=== PATIENT | male | born 1955 | race African-American/Black ===

== ENCOUNTER 2025-04-21 13:45 | Inpatient (IN) | payer MEDICARE, MEDICAID ==
[~2025-04-21] VITALS: Ht 177.8 cm; Wt 86.2 kg
[~2025-04-21 13:45] MED LIST: AMI2 PO; AMLO5TAB88 PO; ASPI-1160 PO; CLOP-31 PO; DAPA10TA MT; FINA-37 MT; FURO-151 MT; LEVO-65 MT; LOSA25TA26 MT; METO25TA6 PO; SPIR25TA6 MT; TAMS-54 PO
[2025-04-21] MEDS ORDERED: SODIUM CHLORIDE 0.9% (SEPSIS BOLUS) IV ONE (15:15)
[2025-04-21] MEDS: AZITHROMYCIN 500MG/250ML 250 ML IV SCH (15:46)
[2025-04-21 16:09] LABS: BASOPHILS % 0.3 % (0.0-2.0); EOSINOPHILS % 0.8 % (0.0-5.0); HEMATOCRIT. 43.9 % (42.0-52.0); HEMOGLOBIN. 14.2 g/dL (14.0-18.0); LYMPHOCYTES % 15.8 % (20.0-50.0); MEAN PLATELET VOLUME 8.0 fl (7.4-10.4); MONOCYTES % 12.0 % (2.0-8.0); NEUTROPHILS % 71.1 % (40.0-76.0); PLATELET 319 x1000/uL (130-400); RED BLOOD CELL COUNT 5.13 mill/uL (4.7-6.1); RED CELL DISTRIBUTION WIDTH 14.6 % (11.6-14.6)
[2025-04-21 16:27] LABS: CREATININE 1.4 mg/dL (0.6-1.3); TROPONIN I HIGH SENSITIVITY 10 ng/L (3.0-53); UREA NITROGEN BLOOD 10 mg/dL (9-23)
[2025-04-21] MEDS: CEFTRIAXONE 1GM/50ML 50 ML IV SCH (16:38)
[2025-04-21] MEDS ORDERED: DOCUSATE SODIUM 100MG CAPSULE PO PRN (17:00)
[2025-04-21] MEDS ORDERED: ACETAMINOPHEN 325MG TABLET PO PRN (17:00)
[2025-04-21] MEDS ORDERED: GUAIFENESIN 200MG/10ML SUGAR FREE UDC PO PRN (17:00)
[2025-04-21] MEDS ORDERED: ONDANSETRON HCL 4MG/2ML INJ IV PRN (17:00)
[2025-04-21] MEDS ORDERED: MAGNESIUM/ALUMINUM HYDROXIDE/SIMETHICONE 30ML UDC PO PRN (17:00)
[2025-04-21] MEDS ORDERED: IPRATROPIUM/ALBUTEROL 0.5-3(2.5)MG/3ML NEB HHN PRN (17:00)
[2025-04-21] MEDS: AMLODIPINE 5MG TABLET PO SCH (19:58)
[2025-04-21 20:00] VITALS: BP 169/115; PULSE 101; RESP 22; TEMP 38; O2SAT 97
[2025-04-21] MEDS: ATORVASTATIN CALCIUM 40MG TABLET PO SCH (20:08)
[2025-04-21] MEDS: METOPROLOL TARTRATE 25MG TABLET PO SCH (20:09)
[2025-04-21] MEDS ORDERED: HYDRALAZINE 20MG/ML VIAL IV PRN (20:15)
[2025-04-21] MEDS: ENOXAPARIN 40MG/0.4ML SYR SUBCUT SCH (20:16)
[2025-04-21] MEDS ORDERED: AMIODARONE 200MG TABLET PO SCH (21:00)
[2025-04-21 21:50] VITALS: BP 129/72; PULSE 91; RESP 25; TEMP 38.086
[2025-04-21] MEDS: ACETAMINOPHEN 325MG TABLET PO PRN (22:07)
[2025-04-22] VITALS: BP 110/78; PULSE 76; RESP 21; TEMP 38.1; O2SAT 95
[2025-04-22 04:00] VITALS: BP 120/82; PULSE 76; RESP 13; TEMP 36.7; O2SAT 98
[2025-04-22 04:21] LABS: CLARITY URINE CLEAR (CLEAR); COLOR URINE YELLOW (YELLOW); GLUCOSE URINE 3+ (NEGATIVE); KETONES URINE TRACE (NEGATIVE); LEUKOCYTE ESTERASE URINE TRACE (NEGATIVE); NITRITE URINE NEGATIVE (NEGATIVE); OCCULT BLOOD URINE TRACE (NEGATIVE); PH URINE 5.5 (4.5-8.0); PROTEIN URINE 1+ (NEGATIVE); SPECIFIC GRAVITY URINE 1.023 (1.005-1.030); UROBILINOGEN URINE 1.0 E.U./dL (0.2-1.0)
[2025-04-22 04:25] LABS: *AMPHETAMINES SCREEN URINE NEGATIVE (NEGATIVE); *BENZODIAZEPINES SCREEN URINE NEGATIVE (NEGATIVE)
[2025-04-22 04:26] LABS: *BARBITURATES SCREEN URINE NEGATIVE (NEGATIVE); *COCAINE SCREEN URINE NEGATIVE (NEGATIVE); CANNABINOID URINE SCREEN NEGATIVE (NEGATIVE); ECSTASY MDMA SCREEN URINE NEGATIVE (NEGATIVE); METHADONE URINE SCREEN NEGATIVE (NEGATIVE); OPIATES URINE SCREEN NEGATIVE (NEGATIVE); PHENCYCLIDINE URINE SCREEN NEGATIVE (NEGATIVE)
[2025-04-22 04:33] LABS: BACTERIA URINE TRACE; SQUAMOUS EPITHELIAL CELL URINE RARE /lpf (RARE/1+)
[2025-04-22 06:22] LABS: INFLUENZA TYPE A Presumptive Negative (Pres. Neg.); INFLUENZA TYPE B Presumptive Negative (Pres. Neg.)
[2025-04-22 08:00] VITALS: BP 129/79; PULSE 80; RESP 18; TEMP 37; O2SAT 97
[2025-04-22 09:55] LABS: BASOPHILS % 0.5 % (0.0-2.0); EOSINOPHILS % 2.6 % (0.0-5.0); HEMATOCRIT. 45.4 % (42.0-52.0); HEMOGLOBIN. 14.7 g/dL (14.0-18.0); LYMPHOCYTES % 40.2 % (20.0-50.0); MEAN PLATELET VOLUME 8.2 fl (7.4-10.4); MONOCYTES % 14.3 % (2.0-8.0); NEUTROPHILS % 42.4 % (40.0-76.0); PLATELET 301 x1000/uL (130-400); RED BLOOD CELL COUNT 5.32 mill/uL (4.7-6.1); RED CELL DISTRIBUTION WIDTH 15.0 % (11.6-14.6)
[2025-04-22 10:08] LABS: CREATININE 1.3 mg/dL (0.6-1.3); TRIGLYCERIDE 69 mg/dL (0-150)
[2025-04-22] MEDS: PANTOPRAZOLE 40MG DR TABLET PO SCH (10:08)
[2025-04-22] MEDS: ASPIRIN 81MG EC TABLET PO SCH (10:08)
[2025-04-22] MEDS: AMIODARONE 200MG TABLET PO SCH (10:08)
[2025-04-22 10:09] LABS: LDL CHOLESTEROL 104 mg/dL (5-100); UREA NITROGEN BLOOD 11 mg/dL (9-23)
[2025-04-22 10:10] LABS: PHOSPHORUS 2.8 mg/dL (2.5-4.9)
[2025-04-22 12:00] VITALS: BP 121/69; PULSE 69; RESP 20; TEMP 37.2; O2SAT 98
[2025-04-22 16:00] VITALS: BP 153/100; PULSE 76; RESP 18; TEMP 36.9; O2SAT 96
[2025-04-22] MEDS: TAMSULOSIN HCL 0.4MG SR CAPSULE PO SCH (17:23)
[2025-04-22] MEDS: FINASTERIDE 5MG TABLET PO SCH (17:23)
[2025-04-22 20:00] VITALS: BP 142/103; PULSE 92; RESP 18; TEMP 36.9; O2SAT 100
[2025-04-23] VITALS: BP 111/66; PULSE 72; RESP 20; TEMP 36.9; O2SAT 97
[2025-04-23 04:00] VITALS: BP 137/90; PULSE 83; RESP 20; TEMP 36.6; O2SAT 97
[2025-04-23 07:25] LABS: PLATELET 278 x1000/uL (130-400); RED BLOOD CELL COUNT 4.94 mill/uL (4.7-6.1); RED CELL DISTRIBUTION WIDTH 15.1 % (11.6-14.6)
[2025-04-23 07:31] LABS: CREATININE 1.2 mg/dL (0.6-1.3); UREA NITROGEN BLOOD 12 mg/dL (9-23)
[2025-04-23 08:29] VITALS: BP 126/90; PULSE 86; RESP 20; TEMP 36.1; O2SAT 96
[2025-04-23] MEDS ORDERED: LIP40 PO (12:16)
[2025-04-23 12:26] VITALS: BP 111/77; PULSE 71; RESP 20; TEMP 37.1; O2SAT 100
[2025-04-23 12:38] VITALS: BP 133/75; PULSE 71; TEMP 98; O2SAT 100
== END 2025-04-23 13:15 | disposition home or self-care (01) | DRG 871 ==
LOC: ER 13:45 → EDBEDREQSVC 16:47 → EDBEDREQTM 16:47 → EDBEDREQ 16:47 → ENRESERV 17:35 → CANRESERV 17:36 → ENRESERV 17:38 → 6EST 17:47 → 7EST 17:54 → 3WST 21:21 → 7WST 04-22 06:01
PROVIDERS: ADMIT Internal Medicine; ATTEND Internal Medicine
DX: A41.89 Other specified sepsis (principal); U07.1 COVID-19; N17.9 Acute kidney failure, unspecified; I50.22 Chronic systolic (congestive) heart failure; R65.11 Systemic inflammatory response syndrome (SIRS) of non-infectious origin with acute organ dysfunction; I11.0 Hypertensive heart disease with heart failure; E78.00 Pure hypercholesterolemia, unspecified; N40.0 Benign prostatic hyperplasia without lower urinary tract symptoms; B34.9 Viral infection, unspecified; I25.10 Atherosclerotic heart disease of native coronary artery without angina pectoris; Z95.1 Presence of aortocoronary bypass graft; Z95.810 Presence of automatic (implantable) cardiac defibrillator; Z79.82 Long term (current) use of aspirin; Z55.6 Problems related to health literacy
CPT/HCPCS: 36415; 71045; 80048; 80061; 80305; 81003; 83605; 83735; 83880; 84100; 84145; 84443; 84484; 85025; 85027; 87426; 87804; 93005; 93970; 97161; 97166; 99291; A4606; J0456; J0696; J1650

== ENCOUNTER 2025-06-23 18:15 | Emergency (ER) | payer MEDICARE, MEDICAID ==
[~2025-06-23] VITALS: Ht 177.8 cm; Wt 86.0 kg
[~2025-06-23 18:15] MED LIST changes: +LIP40 PO
[2025-06-23 18:24] VITALS: O2SAT 99
[2025-06-23 21:37] LABS: CLARITY URINE TURBID (CLEAR); COLOR URINE RED (YELLOW); GLUCOSE URINE 3+ (NEGATIVE); KETONES URINE NEGATIVE (NEGATIVE); LEUKOCYTE ESTERASE URINE 1+ (NEGATIVE); NITRITE URINE NEGATIVE (NEGATIVE); OCCULT BLOOD URINE 3+ (NEGATIVE); PH URINE 5.5 (4.5-8.0); PROTEIN URINE 3+ (NEGATIVE); SPECIFIC GRAVITY URINE 1.026 (1.005-1.030); UROBILINOGEN URINE 1.0 E.U./dL (0.2-1.0)
[2025-06-23 21:40] LABS: BASOPHILS % 0.4 % (0.0-2.0); EOSINOPHILS % 1.7 % (0.0-5.0); HEMATOCRIT. 38.4 % (42.0-52.0); HEMOGLOBIN. 12.7 g/dL (14.0-18.0); LYMPHOCYTES % 36.8 % (20.0-50.0); MEAN PLATELET VOLUME 7.5 fl (7.4-10.4); MONOCYTES % 9.8 % (2.0-8.0); NEUTROPHILS % 51.3 % (40.0-76.0); PLATELET 271 x1000/uL (130-400); RED BLOOD CELL COUNT 4.50 mill/uL (4.7-6.1); RED CELL DISTRIBUTION WIDTH 17.4 % (11.6-14.6)
[2025-06-23 21:49] LABS: BACTERIA URINE 1+; RBC URINE TNTC /hpf (0-2); SQUAMOUS EPITHELIAL CELL URINE RARE /lpf (RARE/1+); WBC URINE 50-100 /hpf (0-2)
[2025-06-23] MEDS ORDERED: CEFP200T13 MT (22:16)
[2025-06-23 22:23] VITALS: BP 145/102; PULSE 77; RESP 15; TEMP 36.7; O2SAT 100
== END 2025-06-23 22:24 | disposition home or self-care (01) ==
LOC: ER 18:15
DX: N39.0 Urinary tract infection, site not specified (principal); I10 Essential (primary) hypertension; E78.00 Pure hypercholesterolemia, unspecified; D64.9 Anemia, unspecified; Z79.899 Other long term (current) drug therapy
CPT/HCPCS: 36415; 81003; 85025; 99283